=== PATIENT | male | born 1950 | race Caucasian/White ===

== ENCOUNTER 2018-11-14 08:48 | Inpatient (IN) ==
[2018-11-14] MEDS ORDERED: Famotidine 20 MG/2 ML VIAL IVP ONE (09:04)
[2018-11-14] MEDS ORDERED: Acetaminophen IV 1,000 MG/100 ML INFUS..BTL IVPB ONE (09:06)
[2018-11-14] MEDS ORDERED: Pregabalin 75 MG CAPSULE PO ONE (09:06)
--- NOTE | 2018-11-14 09:06 | History & Physical Report ---
Date of Encounter: 11/14/18 Time of Encounter: 09:06 24 Hour HP Update - Instructions Instructions: If the History and Physical is less than 30 days old and was completed prior to A.M. admission and or procedure and has NOT been updated on calendar day of procedure please complete this update prior to performing procedure. - Update Patient reports changes in Medical Condition: No Changes in examination, assessment, or condition: No Changes in Medication: No Preop tests/diagnostics Reviewed: Yes Surgery Remains Indicated: Yes Consent for Planned Operative Procedure(s) Verified: Yes - Pre-Operative Checklist Preoperative Checklist Indicated: No Prophylactic Antibiotic Ordered: Yes Is VTE Prophylaxis Indicated?: Yes
[2018-11-14] MEDS ORDERED: CeFAZolin Syr 2,000MG/20 ML 2,000 MG/20 ML SYRINGE IVPB ONE (09:10)
--- NOTE | 2018-11-14 09:14 | Anesthesia Evaluation PreOp ---
Date of Encounter: 11/14/18 Time of Encounter: 09:12 - Past History Planned Operation: L-TSR reverse Cardiac History: HTN, Hyperlipidemia, Cardiac Stent (Stent x 1 2008. Last Plavix 11/14/2018 @ 0730. Last ASA 11/13/2018 @2200), Other Pulmonary History: COPD (newly Dx Mild emphysema), LEE ANN Dx (NOT compliant w/CPAP) CASE MANAGEMENT ASSOCIATE History: Other (Hearing lossl) Other Medical History: Other (L-shoulder Rotator cuff arthropathy) Anesthesia History: No Prior Anesthetic Complications, Past Anesthesia (Elaine Fundo, Diaghragmatic repair, Tarsal Tunne, Appy, T&A) Alcohol Use: none Drug use: none Medications and Allergies Aspirin 06/15/15 [History] Lopressor 06/15/15 [History] Nitroglycerin 06/15/15 [History] Plavix 06/15/15 [History] Protonix 06/15/15 [History] Prozac 06/15/15 [History] Relafen 06/15/15 [History] Zocor 06/15/15 [History] Zyrtec 06/15/15 [History] HYDROcodone/Acet 5/325 mg [[place] 5-325 mg] 1 tab PO Q6H PRN 3 Days #10 tab 06/27/17 [Rx] Allergy/AdvReac Type Severity Reaction Status Date / Time dextromethorphan Allergy Confusion Verified 11/02/18 09:35 [From Dimetapp Cold-Congestion] diphenhydramine Allergy Confusion Verified 11/02/18 09:35 [From Dimetapp Cold-Congestion] guaifenesin Allergy Confusion Verified 11/02/18 09:35 [From Dimetapp Cold-Congestion] phenylephrine Allergy Confusion Verified 11/02/18 09:35 [From Dimetapp Cold-Congestion] pseudoephedrine Allergy Confusion Verified 11/02/18 09:35 [From Dimetapp Cold-Congestion] - Meds/Allergy Pre-op Review Medications Reviewed: Yes Allergies Reviewed: Yes Beta Blockers on Current Med List: No Anesthesia Results - Imaging EKG: report reviewed (43bpm - SINUS BRADYCARDIA Electronically Signed On 11-05-2018 12:11:54 EDT by Davie Bonner) Anesthesia Exam O2 Sat Height 1.88 m Weight 114.305 kg Height: 6'2" Weight: 232# BMI = 32.4 NPO (# of Hours): MNOc - HEENT Pupil (Motor): Pupils equal, EOMI Mallampati: III (GLIDESCOPE STRONGLY SUGGESTED. Pt has short TM distance and a significant overbite) Teeth: Normal (several crowns present) Oral Opening: Greater than 3 - CASE MANAGEMENT ASSOCIATE LOC: Oriented CASE MANAGEMENT ASSOCIATE Motor: Normal RUE, Normal LUE, Normal RLE, Normal LLE, Normal Face CASE MANAGEMENT ASSOCIATE Sensory: Normal: RUE, LUE, RLE, LLE, Face - Cardiac Rhythm: Regular Murmur: None JVD: No - Pulmonary Breath Sounds: bilateral Clear Respiratory Effort: Symmetrical Anesthesia Assess/Plan ASA Score: 3 (HTN, Chol, LEE ANN,COPD, CAD) Level of consciousness: Cooperative, Oriented, Tranquil Anesthetic Plan: General, Regional Nerve Block Regional Nerve Block Plan: Supraclavicular Monitoring Plan: Standard Monitors Recovery Plan: PACU Anes Supervising Prov Stmt: PT seen/evaluated, R&B Discussed, questions answered and consent obtained - MD Eliane
[2018-11-14] MEDS ORDERED: Ringers Solution, Lactated 1,000 ML IVC SCH ×2 (09:15→12:50)
[2018-11-14] MEDS ORDERED: Ondansetron 4 MG/2 ML VIAL ONE (09:23)
[2018-11-14] MEDS ORDERED: Lidocaine -MPF 2% 2 ML VIAL ONE (09:23)
[2018-11-14] MEDS ORDERED: *HR* Midazolam HCl 2 MG/2 ML VIAL ONE (09:23)
[2018-11-14] MEDS ORDERED: *HR* Succinylcholine 200 MG/10 ML VIAL IVP ONE (09:23)
[2018-11-14] MEDS ORDERED: *HR* Propofol 200 MG/20 ML VIAL IVP ONE (09:23)
[2018-11-14] MEDS ORDERED: *HR* FentaNYL (PF) 100 MCG/2 ML VIAL ONE (09:23)
[2018-11-14] MEDS ORDERED: Lidocaine -MPF 4% 5 ML AMPUL ONE (09:23)
[2018-11-14] MEDS ORDERED: Dexamethasone 4 MG/ML VIAL ONE (09:23)
[2018-11-14] MEDS ORDERED: Ropivacaine/PF 0.5% 30 ML VIAL ONE (09:35)
[2018-11-14] MEDS ORDERED: ROPIVACAINE/PF/NS 0.25% 1 EACH SYRINGE INTRAART ONE (09:35)
[2018-11-14] MEDS ORDERED: EPHEDrine 50 MG/ML VIAL ONE (09:53)
[2018-11-14] MEDS ORDERED: Ethanol\\Acetic Acid\\Na Ace\\Ben 1,000 ML IRRIG.SOLN IR ONE (10:27)
[2018-11-14] MEDS ORDERED: *HR* Magnesium Sulfate 1 GM/2 ML VIAL ONE (10:37)
[2018-11-14] MEDS ORDERED: *HR* PHENYLEPHRINE 1,000 MCG/10 ML SYRINGE IVP ONE (11:07)
[2018-11-14] MEDS ORDERED: *HR* HYDROMORPHONE 2 MG/ML VIAL ONE (11:16)
--- NOTE | 2018-11-14 11:27 | Discharge Summary ---
Date of Encounter: 11/15/18 Time of Encounter: 11:30 - Discharge Diagnosis (1) Arthritis of left shoulder region Priority: Primary Status: Chronic (2) Status post total replacement of left shoulder Priority: Primary Status: Acute (3) CAD (coronary artery disease) Priority: Secondary Status: Chronic Qualifiers: Coronary Disease-Associated Artery/Lesion type: unspecified vessel or lesion type [place] vs. transplanted heart: unspecified whether [place] or transplanted heart Associated angina: angina presence unspecified Qualified Code(s): I25.10 - Atherosclerotic heart disease of [place] coronary artery without angina pectoris (4) History of heart artery stent Priority: Secondary Status: Chronic (5) LEE ANN (obstructive sleep apnea) Priority: Secondary Status: Chronic (6) Hypertension Priority: Secondary Status: Chronic Qualifiers: Hypertension type: unspecified Qualified Code(s): I10 - Essential (primary) hypertension - Hospital Course Hospital course: Mr. Moscoso is a 68 year old male s/p Total Shoulder Replacment Reverse, left [Left shoulder cuff tear arthropathy] 11/14/18 Patient seen at bedside. A&Ox3 Dressing and incision c/d/i No calf tenderness, erythema, or warmth. Neurovascularly intact b/l UE. Labwork, vitals, and medications reviewed. Pain control: Adequate Participating in therapy. All questions and concerns addressed. Educated on use of incentive spirometer, ambulation, and hydration. Patient educated on post-operative restrictions and care. Addressed: see above. The patient's postoperative course was uneventful. Progressed from intravenous analgesic needs to oral analgesic needs only. Remained neurovascularly intact and mobilized satisfactorily. All radiographic studies were satisfactory. Patient course and disposition discussed with Dr. Fernández. Patient is discharged to home with plan for rehabilitation and outpatient orthopedic follow up has been arranged. - Time Spent with Patient Total time spent providing and/or coordinating discharge services: - Discharge Medications Prescriptions: New Docusate Sodium [Colace] 100 mg PO BID 5 Days #10 capsule Acetaminophen [Non-Aspirin Extra Strength] 500 mg PO Q6H PRN 7 Days #28 tablet PRN Reason: Mild To Moderate Pain OxyCODONE Immed Rel [Roxicodone 5 MG] 5 mg PO Q6HR PRN 5 Days #20 tablet PRN Reason: Severe Pain Continued Simvastatin [Zocor] 40 mg PO HS Pantoprazole Sodium 40 mg PO DAILY FLUoxetine HCl [Prozac] 20 mg PO DAILY Clopidogrel [Plavix] 75 mg PO DAILY Metoprolol Tartrate [Lopressor] 25 mg PO BID Fluticasone Propionate Nasal [Flonase] 50 mcg NS DAILY Aspirin [Adult Aspirin] 81 mg PO DAILY Sildenafil Citrate [Viagra] 25 mg PO Nitroglycerin [Nitrostat] 0.4 mg SL PRN PRN Reason: chest pain Home Medications: Acetaminophen [Non-Aspirin Extra Strength] 500 mg PO Q6H PRN 7 Days #28 tablet 11/14/18 [Rx] Aspirin [Adult Aspirin] 81 mg PO DAILY 11/14/18 [History] Clopidogrel [Plavix] 75 mg PO DAILY 11/14/18 [History] Docusate Sodium [Colace] 100 mg PO BID 5 Days #10 capsule 11/14/18 [Rx] FLUoxetine HCl [Prozac] 20 mg PO DAILY 11/14/18 [History] Fluticasone Propionate Nasal [Flonase] 50 mcg NS DAILY 11/14/18 [History] Metoprolol Tartrate [Lopressor] 25 mg PO BID 11/14/18 [History] Nitroglycerin [Nitrostat] 0.4 mg SL PRN 11/14/18 [History] OxyCODONE Immed Rel [Roxicodone 5 MG] 5 mg PO Q6HR PRN 5 Days #20 tablet 11/14/18 [Rx] Pantoprazole Sodium 40 mg PO DAILY 11/14/18 [History] Sildenafil Citrate [Viagra] 25 mg PO 11/14/18 [History] Simvastatin [Zocor] 40 mg PO HS 11/14/18 [History] Allergies/Adverse Reactions: Allergy/AdvReac Type Severity Reaction Status Date / Time dextromethorphan Allergy Confusion Verified 11/02/18 09:35 [From Dimetapp Cold-Congestion] diphenhydramine Allergy Confusion Verified 11/02/18 09:35 [From Dimetapp Cold-Congestion] guaifenesin Allergy Confusion Verified 11/02/18 09:35 [From Dimetapp Cold-Congestion] phenylephrine Allergy Confusion Verified 11/02/18 09:35 [From Dimetapp Cold-Congestion] pseudoephedrine Allergy Confusion Verified 11/02/18 09:35 [From Dimetapp Cold-Congestion] Date of admission: 11/14/18 Primary care physician: Brian Wu MD Discharging clinician: Kvng Fernández Anticipated date of discharge: 11/15/18 - VTE Documentation of Mechanical Device: Venous foot pump, device - Patient Status Disposition: Home, Self-Care Condition: Good Functional capacity at discharge: independent ambulation Overall status at discharge: patient is progressing back to baseline - Discharge Instructions Follow Up With: Calista Duenas CNP [Advanced Practice Nurse] - 11/23/18 10:00 am Brian Wu MD [Primary Care Provider] - Additional Instructions: Discharge Instructions: Total Shoulder Please call [facility] ([phone]), your Primary Care Physician, or report to the Emergency Room if you have any of the following symptoms: Nausea, vomiting, fever greater that 101.5, swelling, chest pain, shortness of breath, increased pain/redness/drainage/odor for your incision site, numbness/tingling, or any other concerning symptoms. ACTIVITY: Always keep your arm in the sling. Do not raise your arm away from your body. Do not use your arm to help with getting in or out of bed. No weight bearing permitted. Only perform those exercises given to you by your therapist. Incentive Spirometer 10 times an hour. MEDICATIONS: Upon discharge resume your home medications. Take all the medications as prescribed. Take a stool softener if taking narcotic pain medications. Stool softeners are only effective if you drink enough fluids. Drink 6-8 glass of water or fluids a day, unless this is not allowed for another health problem. Despite using stool softeners, if you haven't had a bowel movement in 3 days, please switch to a gentle laxative. Gentle laxatives are sold over the counter. You should have a bowel movement within 24 hours, if not call the office. You will be discharged from the hospital with a prescription for pain medication. You are encouraged to decrease the use of narcotic pain medication as tolerated. Should you require a refill, please call the office. [facility] prescribes narcotic pain medication for only 4-6 weeks after surgery. If you require pain medication beyond this time period, you may be referred to your Primary Care Physician or to the Pain Clinic for further evaluation. Plan ahead for refills on pain medication as many narcotics either need to be picked up at the office or mailed. It is best to call 48-72 hours in advance of needing a prescription refill so you don't run out of medication. To help control the post-operative pain, you may take NSAIDs (Aleve,Advil, Motrin, Ibuprofen, Naprosyn) or Tylenol as prescribed on the bottle in addition to the pain medication. WOUND CARE: Leave the dressing on for 7-10 days. You may change the dressing if it becomes saturated greater than 50%. Do not get the dressing wet at anytime. Wash your hands with antibacterial soap, rinse and dry prior to any wound care. If you have jennifer the visiting nurse or rehab facility can remove the stapes 10-14 days after surgery and place steri-strips across the wound. Leave the steri-strips in place until they fall off on their own. You may let water from the shower run on top of the steri-strips. If you do not have a visiting nurse or rehab facility, you will need to return to the office at 10-14 days for the jennifer to be removed. If you have itching or redness around the dressing call the office. FOLLOW-UP: Please follow up with your surgeon in the orthopedic clinic, as scheduled - Diet and Activity Activity: as per physical therapy Diet: advance to your usual diet
--- NOTE | 2018-11-14 11:32 | Orthopedic Operative Note ---
Date of procedure: 11/14/18 Pre-op diagnosis: Left shoulder cuff tear arthropathy Post-op diagnosis: same Procedure: Procedure: Total Shoulder Replacment Reverse, left Estimated blood loss: 200 cc Hardware: Metal and polyethylene replacement: Arthrex 24, +4 , 30 mm glenoid baseplate, 4 locking 5.5 screw, 42+4 glenosphere, 12 Framingham humeral stem, poly insert 3 Exam Under anesthesia: Full motion no instability Procedural Notes: Irreparable rotator cuff tear Operative procedure: The patient was brought to the operating room and placed on the operating room table. After general anesthesia was administered the operative shoulder was examined. Findings were noted. The patient was placed in the modified beachchair position. All pressure points were padded appropriately. And the head was stabilized in the neutral position. The operative extremity was prepped and draped in the sterile surgical fashion. The patient received IV antibiotics prior to skin incision. A standard deltopectoral approach was made to the operative shoulder. Incision was made to the skin and subcutaneous tissue,hemo stasis was obtained with Bovie cautery. Using careful blunt dissection the cephalic vein was identified and mobilized medially. The deltopectoral interval was developed and the clavipectoral fascia was incised. The subscap was released off the lesser tuberosity and tagged with #2 FiberWire suture subscap was irreparable. The humerus was dislocated patient noted to have irreparable tear supraspinatus tendon, and the humeral cut was made along the anatomic neck. Anterior and posterior Bankart retractors were placed to expose the glenoid. The glenoid guide was seated and the centering hole was made. It was reamed with the appropriate reamer. The baseplate was seated and secured with 4 locking 5.5 screw. The baseplate was irrigated and dried and the Glenosphere was seated and secured with the Arellano taper. The Arellano taper was tested and found to be secure, glenosphere fixation was secondarily secured with the central screw. The humerus was redislocated and prepared with the diaphyseal reamers, followed by a broaching process up to the appropriate size Framingham stem in the patient's anatomic version. The metaphyseal reamer was then utilized. Trial reduction found the shoulder to be relocatable. Trial components were removed and the Fr[place]ham stem was impacted in place in the patient's anatomic version. Trial reduction found the shoulder to be relocatable and stable with the appropriate 3 poly. Trial component was removed and the real implant was seated and secured the shoulder was reduced. The shoulder had excellent motion and excellent stability and no evidence of dislocation. The deep tissue was irrigated with pulse irrigation. The PA close the shoulder. The deltopectoral interval was closed with a running #1 PDS suture, subcutaneous tissue was irrigated and closed with 0 PDS suture, the skin was closed with Dermabond. The patient was placed in a sterile dressing, abduction brace and extubated. The patient was then transferred to the recovery room in stable condition. Anesthesia: GIGI Surgeon: Kvng Fernández Was there an occupational therapist assistants present: Yes Advertising Sales Associate: Piter Coon Estimated blood loss (cc): 200 Condition: stable Disposition: PACU
--- NOTE | 2018-11-14 12:27 | Anesthesia Evaluation Post Op ---
Date of Encounter: 11/14/18 Time of Encounter: 12:26 - Vital Signs Vital Signs: Vital Signs/O2 Sat/Glucose, Most Recent Temp Pulse Resp BP Pulse Ox 97.8 F 75 12 141/74 98 11/14/18 11:54 11/14/18 12:14 11/14/18 12:14 11/14/18 12:14 11/14/18 12:14 - Lungs Lungs: Clear Ascult./Percussion - Airway Airway: Non-obstructed - Cardiovascular Regular Rate - Mental Status Mental Status: Alert & Oriented, Answers Appropriately - Pain Pain Scale: 0 (denies pain) Pain Scale used: Numeric (1 - 10) - Nausea Vomiting Nausea Vomiting: Not Present - Hydration Hydration: Ice chips, Has not voided - Discharge PostOp Status: Transfer Patient to floor
[2018-11-14 12:28] LABS: Hematocrit 41.7 % (37.5-50.1); Hemoglobin 14.1 g/dL (12.9-16.9)
[2018-11-14] MEDS ORDERED: Ondansetron 4 MG/2 ML VIAL IVP PRN (12:50)
[2018-11-14] MEDS ORDERED: *HR* OxyCODONE/APAP 5/325 TABLET PO PRN (12:50)
[2018-11-14] MEDS ORDERED: MOM Conc 10 ML UD.LIQ PO PRN (12:50)
[2018-11-14] MEDS ORDERED: traMADol 50 MG TABLET PO PRN (12:50)
[2018-11-14] MEDS ORDERED: Sennosides 8.6 MG TABLET PO PRN (12:50)
[2018-11-14] MEDS ORDERED: Temazepam 15 MG CAPSULE PO PRN (12:50)
[2018-11-14] MEDS ORDERED: *HR* OxyCODONE Immed Rel 5 MG TABLET PO PRN (12:50)
[2018-11-14] MEDS ORDERED: *HR* Enoxaparin 30 MG/0.3 ML SYRINGE SQ SCH (18:00)
[2018-11-14] MEDS: *HR* Enoxaparin 30 MG/0.3 ML SYRINGE SQ SCH (18:05)
[2018-11-15] MEDS: *HR* Enoxaparin 30 MG/0.3 ML SYRINGE SQ SCH (05:14)
[2018-11-15 05:25] LABS: Hemoglobin 13.3 g/dL (12.9-16.9)
[2018-11-15 05:45] LABS: BUN/Creatinine Ratio 14 (6-26); Blood Urea Nitrogen 13 mg/dL (8-23); Calcium 8.9 mg/dL (8.6-10.3); Carbon Dioxide 28 mEq/L (23-29); Chloride 103 mEq/L (98-107); Glucose 159 mg/dL (70-105); Osmolality,Calculated 293 (280-300); Potassium 4.2 mEq/L (3.5-5.1); Sodium 140 mEq/L (136-145); eGFR For African Americans > 60 (> 60); eGFR For Non-African Americans > 60 (> 60)
--- NOTE | 2018-11-15 08:51 | Orthopedics Progress Note ---
Date of Encounter: 11/15/18 Time of Encounter: 08:51 Subjective Interval history: Patient was seen this morning doing well without complaints. Afebrile vital signs stable. Operative extremity: Neurovascularly intact Dressing clean dry and intact Calves nontender Assessment and plan: Continue with postoperative care Discharged today Objective Vital signs: Vital Signs Temp Pulse Resp BP Pulse Ox 11/15/18 06:20 98.3 F 64 16 128/76 94 11/15/18 03:52 98.1 F 52 16 125/70 92 11/14/18 22:28 97.8 F 63 16 121/70 93 11/14/18 18:59 97.5 F L 70 16 118/75 93 11/14/18 15:10 97.7 F 54 18 123/81 92 11/14/18 14:00 98.0 F 64 14 120/73 92 11/14/18 13:25 97.7 F 52 14 147/77 98 11/14/18 12:54 97.7 F 64 16 146/82 97 11/14/18 12:34 97.9 F 75 13 148/85 94 11/14/18 12:24 97.9 F 87 15 149/95 95 11/14/18 12:14 75 12 141/74 98 11/14/18 12:04 77 14 132/67 99 11/14/18 11:54 97.8 F 74 12 130/68 97 11/14/18 09:16 98.0 F 56 18 116/76 95 Intake and Output 11/14/18 11/15/18 11/15/18 23:59 07:59 15:59 Intake Total 100 / 120 150 / 150 Balance 100 / -80 150 / 150 Intake: IV Fluids 100 / 120 100 / 100 Ancef 2,000 MG In 0.9 % Sodium 100 / 100 100 / 100 Chloride 100 ML @ 200 mls/hr IVPB Q8HR [facility] Rx#:[id number] Oral 50 / 50 Other: # Voids 1 1 Weight 114.4 kg Patient Weight 11/15/18 23:59 Weight 114.4 kg - Labs CBC & BMP: 11/15/18 05:00 11/15/18 05:00 Labs: Abnormal lab results Glucose 159 mg/dL (70-105) H 11/15/18 05:00 - VTE Documentation of Mechanical Device: Venous foot pump, device Consult Discharge Plan - Plan Referrals: Brian Wu MD [Primary Care Provider] -
[2018-11-15] MEDS ORDERED: Fluticasone Propionate Nasal 50 MCG/SPRAY BOTTLE NS SCH (09:00)
[2018-11-15] MEDS ORDERED: Aspirin Enteric Coated 81 MG Tablet PO SCH (09:00)
[2018-11-15] MEDS ORDERED: FLUoxetine 20 MG CAPSULE PO SCH (09:00)
[2018-11-15 15:22] VITALS: BP 128/76
== END 2018-11-15 14:23 | disposition home or self-care (01) | DRG 483 ==
LOC: SAMDAY 08:48 → 3NENU 14:34
PROVIDERS: ADMIT Orthopaedic Surgery; ATTEND Orthopaedic Surgery

== ENCOUNTER 2018-12-17 04:50 | Inpatient (IN) ==
[2018-12-17] MEDS ORDERED: methylPREDNISolone 125 MG/2 ML VIAL IM STA (04:56)
[2018-12-17] MEDS ORDERED: EPINEPHrine 1 MG/ML VIAL IM ONE (04:57)
[2018-12-17] MEDS ORDERED: methylPREDNISolone 125 MG/2 ML VIAL IVP ONE (05:04)
[2018-12-17 05:34] LABS: Basophils % 0.4 %; Eosinophils # 0.2 K/mcL (0.0-0.6); Eosinophils % 1.8 %; Hematocrit 46.5 % (37.5-50.1); Hemoglobin 15.9 g/dL (12.9-16.9); Immature Granulocytes % 0.7 % (0-4); Lymphocytes # 0.9 K/mcL (0.6-4.6); Mean Corpuscular HGB Conc 34.2 g/dL (31.6-35.5); Mean Corpuscular Hemoglobin 31.9 pg (28.0-33.3); Mean Corpuscular Volume 93.2 fL (83.0-100.0); Monocytes # 0.6 K/mcL (0.0-1.3); Monocytes % 7.2 %; Neutrophils # 6.8 K/mcL (1.6-8.9); Platelet Count 196 K/mcL (140-400); Red Blood Count 4.99 M/mcL (4.19-5.50); Red Cell Distribution Width 13.2 % (11.5-14.5); Segmented Neutrophils % 79.9 %; White Blood Count 8.5 K/mcL (4.3-11.1)
[2018-12-17] MEDS ORDERED: Ketamine *HR* 500 MG/10 ML MDV ONE (05:51)
[2018-12-17 05:54] LABS: BUN/Creatinine Ratio 20 (6-26); Blood Urea Nitrogen 19 mg/dL (8-23); Calcium 9.9 mg/dL (8.6-10.3); Carbon Dioxide 29 mEq/L (23-29); Chloride 102 mEq/L (98-107); Glucose 132 mg/dL (70-105); Osmolality,Calculated 290 (280-300); Potassium 3.7 mEq/L (3.5-5.1); Sodium 138 mEq/L (136-145); eGFR For African Americans > 60 (> 60); eGFR For Non-African Americans > 60 (> 60)
[2018-12-17] MEDS ORDERED: Ketamine *HR* 500 MG/10 ML MDV IVP ONE (06:01)
[2018-12-17] MEDS ORDERED: *HR* Etomidate 40 MG/20 ML VIAL IVP ONE ×2 (06:29→08:19)
[2018-12-17] MEDS ORDERED: *HR* Rocuronium Bromide 50 MG/5 ML VIAL IVP ONE (06:29)
[2018-12-17] MEDS: FentaNYL (PF) 1,000 MCG in 0.9 % Sodium Chloride 80 ML IVC SCH ×2 (06:40→15:14)
[2018-12-17] MEDS ORDERED: Famotidine 20 MG/2 ML VIAL IVP ONE (07:13)
[2018-12-17 07:44] LABS: INR 1.3; Prothrombin Time 14.4 Seconds (9.4-12.1)
[2018-12-17 07:47] LABS: Activated Partial Thrombo Time 33.4 Seconds (26.0-36.0)
[2018-12-17] MEDS ORDERED: Dexmedetomidine HCl 400 MCG/100 ML MLS IVC ONE (07:48)
[2018-12-17] MEDS: Dexmedetomidine HCl 400 MCG/100 ML MLS IVC SCH ×2 (07:49→08:02)
[2018-12-17] MEDS ORDERED: *HR* Rocuronium Bromide 100 MG/10 ML VIAL IVC ONE (08:19)
[2018-12-17] MEDS ORDERED: Acetaminophen 325 MG TABLET PO PRN (09:23)
[2018-12-17] MEDS ORDERED: Artificial Tears SOLN 15 ML BOTTLE BOTH EYES PRN (09:23)
[2018-12-17] MEDS ORDERED: Naloxone 0.4 MG/ML INJ IVP PRN (09:23)
[2018-12-17 10:53] LABS: ABG Base Excess 2 mEq/L (-2 to 3); ABG HCO3 28 mEq/L (21-27); ABG Oxygen Saturation 99 % (95-98); ABG PCO2 51 mmHg (35-45); ABG PH 7.35 pH Units (7.32-7.45); ABG PO2 130 mmHg (85-104); ABG TCO2 30 mEq/L (20-26); Blood Gas Modality ASSIST CONTROL; Blood Gas VT 500 cc
[2018-12-17] MEDS ORDERED: methylPREDNISolone 125 MG/2 ML VIAL IVP SCH (12:00)
[2018-12-17] MEDS: 0.9 % Sodium Chloride w KCl 20 MEQ/1,000 ML MLS IVC SCH ×2 (13:14→19:18)
[2018-12-17] MEDS: Artificial Tears SOLN 15 ML BOTTLE BOTH EYES SCH ×4 (13:19→23:39)
[2018-12-17] MEDS: Famotidine 20 MG/2 ML VIAL IVP SCH (17:16)
[2018-12-17] MEDS: Dexamethasone 10 MG/ML VIAL IVP SCH ×2 (17:16→20:31)
[2018-12-17] MEDS: *HR* Heparin 5,000 UNIT/ML VIAL SQ SCH ×2 (17:17→23:33)
[2018-12-17] MEDS: Chlorhexidine Rinse 15 ML MOUTHWASH MM SCH (20:32)
[2018-12-18] MEDS: FentaNYL (PF) 1,000 MCG in 0.9 % Sodium Chloride 80 ML IVC SCH ×3 (00:36→20:01)
[2018-12-18] MEDS: Artificial Tears SOLN 15 ML BOTTLE BOTH EYES SCH ×6 (03:37→23:27)
[2018-12-18 05:15] LABS: ABG Base Excess 2 mEq/L (-2 to 3); ABG HCO3 28 mEq/L (21-27); ABG Oxygen Saturation 98 % (95-98); ABG PCO2 49 mmHg (35-45); ABG PH 7.37 pH Units (7.32-7.45); ABG PO2 101 mmHg (85-104); ABG TCO2 30 mEq/L (20-26); Blood Gas Modality PRVC; Blood Gas VT 500 cc
[2018-12-18 05:16] LABS: Basophils % 0.1 %; Hematocrit 39.2 % (37.5-50.1); Immature Granulocytes % 0.6 % (0-4); Lymphocytes # 0.3 K/mcL (0.6-4.6); Lymphocytes % 1.9 %; Mean Corpuscular HGB Conc 34.2 g/dL (31.6-35.5); Mean Corpuscular Hemoglobin 31.8 pg (28.0-33.3); Mean Corpuscular Volume 93.1 fL (83.0-100.0); Mean Platelet Volume 10.2 fL (9.4-12.4); Monocytes # 0.3 K/mcL (0.0-1.3); Monocytes % 2.3 %; Neutrophils # 12.3 K/mcL (1.6-8.9); Platelet Count 152 K/mcL (140-400); Red Blood Count 4.21 M/mcL (4.19-5.50); Red Cell Distribution Width 13.2 % (11.5-14.5); Segmented Neutrophils % 95.1 %
[2018-12-18 05:22] LABS: Hemoglobin 13.4 g/dL (12.9-16.9); White Blood Count 12.9 K/mcL (4.3-11.1)
[2018-12-18 05:33] LABS: BUN/Creatinine Ratio 32 (6-26); Blood Urea Nitrogen 25 mg/dL (8-23); Calcium 8.9 mg/dL (8.6-10.3); Carbon Dioxide 25 mEq/L (23-29); Chloride 105 mEq/L (98-107); Glucose 150 mg/dL (70-105); Osmolality,Calculated 289 (280-300); Potassium 3.9 mEq/L (3.5-5.1); Sodium 136 mEq/L (136-145); eGFR For African Americans > 60 (> 60); eGFR For Non-African Americans > 60 (> 60)
[2018-12-18] MEDS: Famotidine 20 MG/2 ML VIAL IVP SCH ×2 (05:48→18:56)
[2018-12-18] MEDS: 0.9 % Sodium Chloride w KCl 20 MEQ/1,000 ML MLS IVC SCH ×2 (06:10→18:56)
[2018-12-18] MEDS: *HR* Heparin 5,000 UNIT/ML VIAL SQ SCH ×3 (10:01→23:26)
[2018-12-18] MEDS: Dexamethasone 10 MG/ML VIAL IVP SCH ×3 (10:01→21:41)
[2018-12-18] MEDS: Chlorhexidine Rinse 15 ML MOUTHWASH MM SCH ×2 (10:02→19:51)
[2018-12-18] MEDS ORDERED: 0.9 % Sodium Chloride 250 ML ONE (12:51)
[2018-12-18 12:54] LABS: Complement C3 124 mg/dL (87-200)
[2018-12-18 20:39] LABS: Bilirubin,Urine Negative (Negative); Blood,Urine Moderate (Negative); Clarity,Urine Clear (Clear); Color,Urine Dark Yellow (Yellow); Glucose,Urine (UA) Normal (Normal); Ketones,Urine Negative (Negative); Leukocyte Esterase,Urine Negative (Negative); Nitrite,Urine Negative (Negative); Protein,Urine Trace mg/dL (Neg-Trace); Specific Gravity,Urine > 1.030 (1.010-1.025); Urobilinogen,Urine Normal (Normal)
[2018-12-18 20:40] LABS: Hyaline Casts,Urine Moderate per lpf (None-Few); RBC,Urine 15-30 per hpf (0-3); Squamous Epithelial Cell,Urine Many per lpf (None-Few)
[2018-12-18 21:10] LABS: Bacteria,Urine Few per hpf (None-Few); Mucus,Urine Moderate (Few)
[2018-12-18] MEDS: Cetirizine HCl 5 MG/5 ML UDC PO SCH (21:41)
[2018-12-19] MEDS: 0.9 % Sodium Chloride w KCl 20 MEQ/1,000 ML MLS IVC SCH ×3 (03:53→21:43)
[2018-12-19] MEDS: Artificial Tears SOLN 15 ML BOTTLE BOTH EYES SCH ×6 (03:53→23:03)
[2018-12-19 05:44] LABS: ABG Base Excess 5 mEq/L (-2 to 3); ABG HCO3 31 mEq/L (21-27); ABG Oxygen Saturation 99 % (95-98); ABG PCO2 49 mmHg (35-45); ABG PH 7.41 pH Units (7.32-7.45); ABG PO2 123 mmHg (85-104); ABG TCO2 32 mEq/L (20-26); Blood Gas Modality ASSIST CONTROL; Blood Gas VT 500 cc
[2018-12-19] MEDS: Famotidine 20 MG/2 ML VIAL IVP SCH ×2 (05:58→17:36)
[2018-12-19] MEDS: FentaNYL (PF) 1,000 MCG in 0.9 % Sodium Chloride 80 ML IVC SCH (06:15)
[2018-12-19 07:05] LABS: Basophils % 0.1 %; Hematocrit 37.7 % (37.5-50.1); Hemoglobin 12.8 g/dL (12.9-16.9); Immature Granulocytes % 0.7 % (0-4); Lymphocytes # 0.2 K/mcL (0.6-4.6); Lymphocytes % 1.5 %; Mean Corpuscular Hemoglobin 31.8 pg (28.0-33.3); Mean Corpuscular Volume 93.5 fL (83.0-100.0); Monocytes # 0.3 K/mcL (0.0-1.3); Monocytes % 2.8 %; Neutrophils # 11.5 K/mcL (1.6-8.9); Platelet Count 124 K/mcL (140-400); Red Blood Count 4.03 M/mcL (4.19-5.50); Red Cell Distribution Width 12.8 % (11.5-14.5); Segmented Neutrophils % 94.9 %; White Blood Count 12.1 K/mcL (4.3-11.1)
[2018-12-19 07:23] LABS: Platelet Estimate Slight Decrease (Normal)
[2018-12-19] MEDS ORDERED: Racepinephrine Neb 0.5 ML VIAL IH ONE ×2 (07:25→13:55)
[2018-12-19 07:44] LABS: BUN/Creatinine Ratio 36 (6-26); Blood Urea Nitrogen 28 mg/dL (8-23); Calcium 9.1 mg/dL (8.6-10.3); Carbon Dioxide 28 mEq/L (23-29); Chloride 102 mEq/L (98-107); Glucose 151 mg/dL (70-105); Osmolality,Calculated 294 (280-300); Sodium 138 mEq/L (136-145); eGFR For African Americans > 60 (> 60); eGFR For Non-African Americans > 60 (> 60)
[2018-12-19 08:00] LABS: Alanine Aminotransferase 13 Units/L (7-52); Albumin 3.8 g/dL (3.5-5.7); Albumin/Globulin Ratio 1.3 (1.1-2.2); Alkaline Phosphatase 73 Units/L (34-104); Aspartate Amino Transferase 13 Units/L (13-39); BUN/Creatinine Ratio 35 (6-26); Bilirubin,Total 0.6 mg/dL (0.3-1.0); Blood Urea Nitrogen 28 mg/dL (8-23); Calcium 9.2 mg/dL (8.6-10.3); Carbon Dioxide 27 mEq/L (23-29); Chloride 102 mEq/L (98-107); Glucose 152 mg/dL (70-105); Magnesium 2.2 mg/dL (1.6-2.6); Osmolality,Calculated 294 (280-300); Phosphorous 2.9 mg/dL (2.7-4.5); Potassium 4.2 mEq/L (3.5-5.1); Sodium 138 mEq/L (136-145); Total Protein 6.8 g/dL (6.4-8.9); eGFR For African Americans > 60 (> 60); eGFR For Non-African Americans > 60 (> 60)
[2018-12-19] MEDS: Chlorhexidine Rinse 15 ML MOUTHWASH MM SCH ×2 (08:55→20:40)
[2018-12-19] MEDS: Cetirizine HCl 5 MG/5 ML UDC PO SCH ×2 (08:56→20:41)
[2018-12-19] MEDS: *HR* Heparin 5,000 UNIT/ML VIAL SQ SCH ×2 (08:56→15:57)
[2018-12-19] MEDS: Dexamethasone 10 MG/ML VIAL IVP SCH ×3 (08:56→20:40)
[2018-12-20] MEDS: *HR* Heparin 5,000 UNIT/ML VIAL SQ SCH ×3 (00:12→15:06)
[2018-12-20] MEDS: Artificial Tears SOLN 15 ML BOTTLE BOTH EYES SCH ×4 (02:36→15:07)
[2018-12-20] MEDS: 0.9 % Sodium Chloride w KCl 20 MEQ/1,000 ML MLS IVC SCH (05:16)
[2018-12-20] MEDS: Famotidine 20 MG/2 ML VIAL IVP SCH (05:16)
[2018-12-20 05:52] LABS: Basophils % 0.1 %; Hematocrit 40.8 % (37.5-50.1); Hemoglobin 13.5 g/dL (12.9-16.9); Immature Granulocytes % 0.7 % (0-4); Lymphocytes # 0.2 K/mcL (0.6-4.6); Lymphocytes % 1.8 %; Mean Corpuscular HGB Conc 33.1 g/dL (31.6-35.5); Mean Corpuscular Hemoglobin 31.9 pg (28.0-33.3); Mean Corpuscular Volume 96.5 fL (83.0-100.0); Mean Platelet Volume 10.1 fL (9.4-12.4); Monocytes # 0.5 K/mcL (0.0-1.3); Monocytes % 4.1 %; Neutrophils # 10.7 K/mcL (1.6-8.9); Platelet Count 120 K/mcL (140-400); Red Blood Count 4.23 M/mcL (4.19-5.50); Red Cell Distribution Width 12.8 % (11.5-14.5); Segmented Neutrophils % 93.3 %; White Blood Count 11.4 K/mcL (4.3-11.1)
[2018-12-20 06:11] LABS: BUN/Creatinine Ratio 33 (6-26); Blood Urea Nitrogen 27 mg/dL (8-23); Calcium 9.1 mg/dL (8.6-10.3); Carbon Dioxide 27 mEq/L (23-29); Chloride 101 mEq/L (98-107); Glucose 211 mg/dL (70-105); Osmolality,Calculated 293 (280-300); Potassium 4.4 mEq/L (3.5-5.1); Sodium 136 mEq/L (136-145); eGFR For African Americans > 60 (> 60); eGFR For Non-African Americans > 60 (> 60)
[2018-12-20] MEDS ORDERED: Nitroglycerin 0.4 MG TAB.SUBL SL PRN ×2 (07:11→19:56)
[2018-12-20] MEDS: Chlorhexidine Rinse 15 ML MOUTHWASH MM SCH (07:40)
[2018-12-20] MEDS: Cetirizine HCl 5 MG/5 ML UDC PO SCH ×2 (07:40→22:45)
[2018-12-20] MEDS: Dexamethasone 10 MG/ML VIAL IVP SCH ×2 (07:41→15:06)
[2018-12-20] MEDS ORDERED: Perflutren Lipid Microsphere 1.3 ML in 0.9 % Sodium Chloride 8.7 ML IVP ONE (11:47)
[2018-12-20] MEDS ORDERED: Naloxone 0.4 MG/ML INJ IVP PRN (19:56)
[2018-12-20] MEDS ORDERED: Acetaminophen 325 MG TABLET PO PRN (19:56)
[2018-12-20] MEDS: predniSONE 20 MG TABLET PO SCH (21:54)
[2018-12-21] MEDS: *HR* Heparin 5,000 UNIT/ML VIAL SQ SCH ×2 (00:02→12:02)
[2018-12-21 02:55] LABS: Alanine Aminotransferase 27 Units/L (7-52); Albumin 3.5 g/dL (3.5-5.7); Albumin/Globulin Ratio 1.3 (1.1-2.2); Alkaline Phosphatase 66 Units/L (34-104); Aspartate Amino Transferase 18 Units/L (13-39); BUN/Creatinine Ratio 30 (6-26); Bilirubin,Total 0.5 mg/dL (0.3-1.0); Blood Urea Nitrogen 25 mg/dL (8-23); Calcium 8.9 mg/dL (8.6-10.3); Carbon Dioxide 28 mEq/L (23-29); Chloride 103 mEq/L (98-107); Globulin 2.8 g/dL (2.4-3.5); Glucose 180 mg/dL (70-105); Magnesium 2.3 mg/dL (1.6-2.6); Osmolality,Calculated 293 (280-300); Phosphorous 2.1 mg/dL (2.7-4.5); Potassium 3.9 mEq/L (3.5-5.1); Sodium 137 mEq/L (136-145); Total Protein 6.3 g/dL (6.4-8.9); eGFR For African Americans > 60 (> 60); eGFR For Non-African Americans > 60 (> 60)
[2018-12-21] MEDS ORDERED: Famotidine 20 MG/2 ML VIAL IVP SCH (06:00)
[2018-12-21 08:49] LABS: Troponin I < 0.03 ng/mL (< 0.04)
[2018-12-21 11:53] VITALS: BP 167/85
[2018-12-21] MEDS: Cetirizine HCl 5 MG/5 ML UDC PO SCH (12:03)
[2018-12-21] MEDS: predniSONE 20 MG TABLET PO SCH (12:03)
== END 2018-12-21 17:51 | disposition home or self-care (01) | DRG 915 ==
LOC: EMEROOARM 04:50 → ICNU 07:49 → SUATTDRO 07:49 → ICNU 09:26 → 2NENU 12-20 19:51
PROVIDERS: ADMIT Pediatrics; ATTEND Internal Medicine

== ENCOUNTER 2020-12-17 08:28 | Inpatient (IN) ==
[2020-12-17] MEDS ORDERED: *HR* Rocuronium Bromide 50 MG/5 ML VIAL ONE (08:44)
[2020-12-17] MEDS ORDERED: Ondansetron 4 MG/2 ML VIAL ONE (08:44)
[2020-12-17] MEDS ORDERED: Lidocaine -MPF 2% 2 ML VIAL ONE (08:44)
[2020-12-17] MEDS ORDERED: *HR* FentaNYL (PF) 100 MCG/2 ML VIAL ONE (08:45)
[2020-12-17] MEDS ORDERED: *HR* Propofol 200 MG/20 ML VIAL IVP ONE (08:45)
[2020-12-17] MEDS ORDERED: *HR* Midazolam HCl 2 MG/2 ML VIAL ONE (08:45)
[2020-12-17] MEDS ORDERED: Acetaminophen IV 1,000 MG/100 ML BAG IVPB ONE (08:55)
[2020-12-17] MEDS ORDERED: Gabapentin 300 MG CAPSULE PO ONE (08:55)
[2020-12-17] MEDS ORDERED: Famotidine 20 MG/2 ML VIAL IVP ONE (08:55)
[2020-12-17] MEDS ORDERED: CeFAZolin Syr 2,000MG/20 ML 2,000 MG/20 ML SYRINGE IVPB ONE (09:13)
[2020-12-17] MEDS ORDERED: Ringers Solution, Lactated 1,000 ML IVC SCH (09:15)
[2020-12-17] MEDS ORDERED: EPHEDrine 50 MG/ML VIAL ONE (10:53)
[2020-12-17] MEDS ORDERED: Sugammadex Sodium 200 MG/2 ML VIAL IV ONE (11:43)
[2020-12-17] MEDS ORDERED: Ondansetron 4 MG/2 ML VIAL IVP PRN ×2 (11:55→14:41)
[2020-12-17] MEDS ORDERED: *HR* Labetalol 20 MG/4 ML SYRINGE IVP PRN (11:55)
[2020-12-17] MEDS ORDERED: *HR* HYDROmorphone PF 0.5 MG/0.5 ML SYRINGE IVP PRN (11:55)
[2020-12-17] MEDS ORDERED: *HR* HYDROcodone/Acet 5/325 mg TABLET PO PRN (14:41)
[2020-12-17] MEDS: Ipratropium/Albuterol Neb 3 ML IH SCH ×4 (15:27→23:51)
[2020-12-17] MEDS: Gabapentin 300 MG CAPSULE PO SCH ×2 (15:47→21:37)
[2020-12-17] MEDS: *HR* Heparin 5,000 UNIT/ML VIAL SQ SCH ×2 (15:48→21:38)
[2020-12-17] MEDS: Ketorolac 15 MG/ML VIAL IVP SCH ×3 (15:48→23:36)
[2020-12-17] MEDS: 0.9 % Sodium Chloride 1,000 ML IVC SCH (15:50)
[2020-12-17] MEDS: Loratadine 10 MG TABLET PO SCH (21:38)
[2020-12-17] MEDS: Sennosides/Docusate Sodium TABLET PO SCH (21:38)
[2020-12-17] MEDS: Famotidine 20 MG TABLET PO SCH (21:38)
[2020-12-17 23:20] VITALS: TEMP 97.8
[2020-12-18 00:59] LABS: Hematocrit 40.7 % (37.5-50.1); Hemoglobin 13.5 g/dL (12.9-16.9); Mean Corpuscular HGB Conc 33.2 g/dL (31.6-35.5); Mean Corpuscular Hemoglobin 31.4 pg (28.0-33.3); Mean Corpuscular Volume 94.7 fL (83.0-100.0); Mean Platelet Volume 10.3 fL (9.4-12.4); Platelet Count 119 K/mcL (140-400); Red Cell Distribution Width 12.9 % (11.5-14.5); White Blood Count 7.1 K/mcL (4.3-11.1)
[2020-12-18 01:20] LABS: Alanine Aminotransferase 12 Units/L (7-52); Albumin 3.8 g/dL (3.5-5.7); Albumin/Globulin Ratio 1.4 (1.1-2.2); Alkaline Phosphatase 61 Units/L (34-104); Aspartate Amino Transferase 19 Units/L (13-39); BUN/Creatinine Ratio 16 (6-26); Bilirubin,Direct 0.2 mg/dL (0.0-0.2); Bilirubin,Indirect 0.7 mg/dL (0.0-1.0); Bilirubin,Total 0.9 mg/dL (0.3-1.0); Blood Urea Nitrogen 17 mg/dL (8-23); Calcium 8.6 mg/dL (8.6-10.3); Carbon Dioxide 22 mEq/L (23-29); Chloride 105 mEq/L (98-107); Globulin 2.7 g/dL (2.4-3.5); Glucose 189 mg/dL (70-105); Magnesium 1.9 mg/dL (1.6-2.6); Osmolality,Calculated 287 (280-300); Potassium 3.5 mEq/L (3.5-5.1); Sodium 135 mEq/L (136-145); Total Protein 6.5 g/dL (6.4-8.9); eGFR For African Americans > 60 (> 60); eGFR For Non-African Americans > 60 (> 60)
[2020-12-18] MEDS: Ipratropium/Albuterol Neb 3 ML IH SCH ×3 (04:09→10:22)
[2020-12-18] MEDS: 0.9 % Sodium Chloride 1,000 ML IVC SCH (05:22)
[2020-12-18] MEDS: Ketorolac 15 MG/ML VIAL IVP SCH (05:23)
[2020-12-18] MEDS: *HR* Heparin 5,000 UNIT/ML VIAL SQ SCH (05:23)
[2020-12-18 07:30] VITALS: BP 109/48; PULSE 48
[2020-12-18] MEDS: Sennosides/Docusate Sodium TABLET PO SCH (08:59)
[2020-12-18] MEDS ORDERED: Fluticasone Propionate Nasal 50 MCG/SPRAY BOTTLE NS SCH (09:00)
[2020-12-18] MEDS ORDERED: FLUoxetine 20 MG CAPSULE PO SCH (09:00)
[2020-12-18] MEDS: Famotidine 20 MG TABLET PO SCH (09:00)
[2020-12-18] MEDS: Gabapentin 300 MG CAPSULE PO SCH (09:01)
[2020-12-18] MEDS: Loratadine 10 MG TABLET PO SCH (09:01)
[2020-12-18 10:23] VITALS: O2SAT 99
== END 2020-12-18 12:50 | disposition home or self-care (01) | DRG 165 ==
LOC: SAMDAY 08:28 → 2NNU 14:27
PROVIDERS: ADMIT Thoracic Surgery (Cardiothoracic Vascular Surgery); ATTEND Thoracic Surgery (Cardiothoracic Vascular Surgery)